=== PATIENT | male | born 1955 | race Caucasian/White ===

== ENCOUNTER 2022-02-05 09:13 | Day surgery (SDC) | payer MEDICARE ==
[~2022-02-05] VITALS: Ht 185.4 cm; Wt 96.0 kg
[2022-02-05] VITALS (11 sets, daily range): BP systolic 91–147; BP diastolic 58–78; PULSE 62–86; TEMP 95–98.5
[2022-02-05] MEDS ORDERED: SINGULAIR 110 MG/TAB PO (09:33)
[2022-02-05] MEDS ORDERED: VITAMIN A (09:33)
--- NOTE | 2022-02-05 09:57 | NUR ---
[id number] - MANUFACTURER'S REPRESENTATIVE contacted for fluid orders; orders recieved.
--- NOTE | 2022-02-05 13:00 | NUR ---
Pt recently up from surgery. Pt is alert and oriented with no pain complaints. CBI running on moderate rate, output is as clear as the CBI. CBI turned down at this time. SCDs on bilaterally. Oriented pt to room and educated on room service. All questions answered
--- NOTE | 2022-02-05 14:32 | NUR ---
Pt continues to do well with no pain complaints. Starting to get feeling back in his legs. Output continues to be free of clots. Slightly darker, due to medication. SCDs on. Pt tolerating general dieth with no complaints.
--- NOTE | 2022-02-05 18:08 | NUR ---
Pts brother is in the room visiting. He does state that he is starting to have some discomfort and asked about ibuprofen, reports that he does not usually take tylenol. Discussed Toradol with him and he stated he would take it when his dinner arrives. Output remains clear with CBI running at slow rate. Urine is orange in color at this time. Pt having great output
--- NOTE | 2022-02-05 20:11 | NUR ---
PT A&OX4 RESTING IN BED. ASSESSMENT COMPLETE AND MEDS GIVEN. PT RATES PN A 11/06 DUE TO BANUELOS. CBI RUNNING SLOW W ORANGE URINE OUTPUT. IV IN RT HAND. SCDS TO BLE. NO NEEDS AT THIS TIME. CALL LIGHT WITHIN REACH.
[2022-02-06 04:06] VITALS: BP 105/52; PULSE 83; TEMP 97.4
[2022-02-06 08:00] VITALS: BP 123/81; PULSE 83; TEMP 97.8
--- NOTE | 2022-02-06 10:14 | NUR ---
SW met with patient to complete intake. Patient states that he lives in [facility] and family is Casandra [phone]. Patient states that he does not utilize DME, is independent with ADL's and does not utilize HH services at this time. PCP is Dr. Bronson, and pharmacy is [facility]. Patient does not have a DPOA/HC appointed and does not wish to appoint anyone at this time. Patient plans to return to [facility] on DC. LYNN will continue to follow. DC plan: home
[2022-02-06 12:00] VITALS: BP 133/78; PULSE 78; TEMP 97.8
--- NOTE | 2022-02-06 13:14 | NUR ---
Donor Relations Manager rounds: Donor Relations Manager visit attempted. Patient declined. Donor Relations Manager visit not completed.
[2022-02-06 16:00] VITALS: BP 124/63; PULSE 74; TEMP 98.2
[2022-02-06 19:58] VITALS: BP 125/72; PULSE 75; TEMP 97.7
--- NOTE | 2022-02-06 20:22 | NUR ---
PT A&OX4 RESTING IN BED. ASSESSMENT COMPLETE AND MEDS GIVEN. PT DENIES PN. URINE IS RED IN COLOR. VS STABLE. IV IN RT HAND PATENT. NO NEEDS AT THIS TIME. CALL LIGHT WITHIN REACH.
[2022-02-06 23:31] VITALS: BP 127/63; PULSE 78; TEMP 97.9
[2022-02-07 03:18] VITALS: BP 119/62; PULSE 75; TEMP 97.4
--- NOTE | 2022-02-07 05:30 | NUR ---
PT REPORTS DIFFICULTY STARTING AND PRESSURE W URINATING, BLADDER SCAN SHOWED 30ML RETAINED.
[2022-02-07 07:29] VITALS: BP 123/73; PULSE 54; TEMP 98.3
[2022-02-07 09:24] VITALS: BP 148/66; PULSE 86; TEMP 97.5
--- NOTE | 2022-02-07 11:43 | NUR ---
Dr Will in to see pt, discussed discharge with pt as well as symptoms improving over time. Pt not having any complaints of pain at this time. Pt is ready to go once paperwork is completed. Informed him that he can get dressed and that I would be in with paperwork
--- NOTE | 2022-02-07 12:21 | NUR ---
Reviewed discharge instructions with pt to include making a follow up appointment. INT removed and pt escorted out
== END 2022-02-07 12:21 | disposition home or self-care (01) ==
LOC: SDCO 09:13 → SURG 12:40 → SDCO 02-07 12:21
DX: N40.1 Benign prostatic hyperplasia with lower urinary tract symptoms (principal); N13.8 Other obstructive and reflux uropathy; R39.11 Hesitancy of micturition; R39.14 Feeling of incomplete bladder emptying; R39.12 Poor urinary stream; R35.1 Nocturia
CPT/HCPCS: OP; J0690; J1100; J1885; J2250; J2405; J2704; J3010; J3480; J7120